=== PATIENT | male | born 1965 | race Caucasian/White ===

== ENCOUNTER 2016-05-13 10:13 | Day surgery (SDC) | payer BC ==
[~2016-05-13] VITALS: Ht 185.4 cm; Wt 126.0 kg
[~2016-05-13 10:13] MED LIST: BUPIVACAINE/PF-EPI 0.25% 1:200K ONE
[2016-05-13] MEDS ORDERED: MIDAZOLAM 1 MG/ML, 2ML ONE (10:17)
[2016-05-13] MEDS ORDERED: FENTANYL PF 250 MCG/5ML ONE (10:17)
[2016-05-13] MEDS ORDERED: LACTATED RINGERS 1,000 ML IV SCH (11:03)
[2016-05-13] MEDS ORDERED: AMLO10TA2 PO (11:26)
[2016-05-13 11:27] VITALS: BP 142/88
[2016-05-13] MEDS ORDERED: ONDANSETRON 2MG/ML, 2ML ONE (12:19)
[2016-05-13] MEDS ORDERED: CEFAZOLIN 1,000 MG ONE (12:19)
[2016-05-13] MEDS ORDERED: PROPOFOL 10 MG/ML, 20ML ONE (12:19)
[2016-05-13] MEDS ORDERED: FENTANYL PF 100 MCG/2ML IV PRN (12:30)
[2016-05-13] MEDS ORDERED: MEPERIDINE/PF 25MG/0.5ML IVPush PRN (12:30)
[2016-05-13] MEDS ORDERED: METOCLOPRAMIDE 5 MG/ML, 2ML IV PRN (12:30)
[2016-05-13] MEDS ORDERED: PROMETHAZINE 25 MG/ML, 1ML IV PRN (12:30)
[2016-05-13] MEDS ORDERED: HYDROmorphone 1 MG/ML, 1ML IV PRN (12:30)
[2016-05-13] MEDS ORDERED: ACETAMINOPHEN 325 MG TABLET PO PRN (12:30)
[2016-05-13] MEDS ORDERED: MIDAZOLAM 1 MG/ML, 2ML IV PRN (12:30)
[2016-05-13] MEDS ORDERED: OXYcodone 5 MG/5 ML ORAL.SOL UDC PO PRN (12:30)
[2016-05-13] MEDS ORDERED: hydrALAzine 20 MG/ML, 1ML IV PRN (12:30)
[2016-05-13] MEDS ORDERED: ONDANSETRON 2MG/ML, 2ML IVPush PRN (12:30)
[2016-05-13] MEDS ORDERED: LABETALOL 5MG/ML, 20ML IV PRN (12:30)
== END 2016-05-13 15:15 ==
LOC: OUT 10:13
PROVIDERS: ATTEND Orthopaedic Surgery
DX: Z47.2 Encounter for removal of internal fixation device (principal); I10 Essential (primary) hypertension; K21.9 Gastro-esophageal reflux disease without esophagitis; G43.909 Migraine, unspecified, not intractable, without status migrainosus; E66.9 Obesity, unspecified; Z68.36 Body mass index [BMI] 36.0-36.9, adult
CPT/HCPCS: 20680; 73100; 76000; J0690; J2250; J2405; J2704; J3010; J7120